=== PATIENT | female | born 1990 | race Caucasian/White ===

== ENCOUNTER 2021-01-25 16:36 | Observation (INO) | payer MEDICAID ==
[~2021-01-25] VITALS: Ht 142 cm; Wt 41.7 kg
== END 2021-01-25 18:20 | disposition home or self-care (01) ==
LOC: SED 16:36 → SPU 16:55
PROVIDERS: ADMIT Specialist; ATTEND Specialist
DX: O26.892 Other specified pregnancy related conditions, second trimester (principal); R10.30 Lower abdominal pain, unspecified; Z3A.25 25 weeks gestation of pregnancy
CPT/HCPCS: G0378